=== PATIENT | female | born 2000 | race Caucasian/White ===

== ENCOUNTER 2020-09-10 00:06 | Emergency (ER) | payer OTHER ==
[~2020-09-10] VITALS: Ht 160 cm; Wt 57.8 kg
[2020-09-10 00:10] VITALS: BP 118/65
[2020-09-10] MEDS ORDERED: L.E.T SOLUTION TP ONE (00:30)
[2020-09-10] MEDS ORDERED: LIDOCAINE-MPF 1%, 5ML INFIL ONE (00:30)
[2020-09-10] MEDS ORDERED: LIDOCAINE-MPF 1%, 5ML ONE (01:11)
[2020-09-10] MEDS ORDERED: NEOSPORIN OINT. PKT 1 PACKET ONE (01:31)
--- NOTE | 2020-09-10 01:35 | NUR ---
wound care discussed to return or go to [facility] in [place] in 10 days. friend with pt.
== END 2020-09-10 01:37 | disposition home or self-care (01) ==
LOC: ED 01:15
DX: S01.81XA Laceration without foreign body of other part of head, initial encounter (principal); W01.190A Fall on same level from slipping, tripping and stumbling with subsequent striking against furniture, initial encounter; Y93.89 Activity, other specified; Y92.89 Other specified places as the place of occurrence of the external cause; Y99.8 Other external cause status
CPT/HCPCS: 12051; 99284